=== PATIENT | female | born 1985 | race Two or more races ===

== ENCOUNTER 2024-10-15 13:43 | Inpatient (IN) | payer OTHER ==
[~2024-10-15] VITALS: Ht 162.6 cm; Wt 91.5 kg
[2024-10-15 15:34] LABS: PLATELET COUNT (AUTO) 361 K/uL (150-450); RED BLOOD CELL COUNT(AUTO) 4.35 MIL/uL (4.00-5.20); RED CELL DISTRIBUTION WIDTH 14.0 % (11.5-14.5); WHITE BLOOD COUNT (AUTO) 6.3 K/uL (4.5-11.0)
[2024-10-15 15:38] LABS: CALCIUM, TOTAL 7.8 mg/dL (8.8-10.5); CREATININE 0.56 mg/dL (0.60-1.30); GLOMERULAR FILTR. RATE CALC > 60 mL/min (>60); GLUCOSE,RANDOM 97 mg/dL (70-110); SODIUM SERUM 137 mmol/L (136-145); UREA NITROGEN, BLOOD 8 mg/dL (7-18)
[2024-10-15 15:42] LABS: ASPARTATE AMINOTRANSFERASE 18 U/L (15-37); CREATINE KINASE, TOTAL ONLY 118 U/L (26-192); TOTAL PROTEIN, SERUM 7.4 g/dL (6.4-8.2)
[2024-10-15 15:43] LABS: ALCOHOL, BLOOD (SERUM) < 3 mg/dL (0-10)
[2024-10-15 15:55] LABS: TROPONIN I-HIGH SENSITIVITY 5 ng/L (<51)
[2024-10-15] MEDS ORDERED: MAGNESIUM HYDROXIDE SUSPENSION 30 ML UDCUP PO PRN (16:15)
[2024-10-15] MEDS ORDERED: POTASSIUM CHL 10 MEQ/WATER 50 ML IV PRN (16:15)
[2024-10-15] MEDS ORDERED: MAGNESIUM OXIDE 400 MG TABLET PO PRN (16:15)
[2024-10-15] MEDS ORDERED: INSULIN LISPRO 100 UNITS/ML SQ PRN (16:15)
[2024-10-15] MEDS ORDERED: DEXTROSE 50%-WATER 25 GM/50 ML SYRINGE IVP PRN (16:15)
[2024-10-15] MEDS ORDERED: MAGNESIUM SULFATE 4 GM/WATER 100 ML IV PRN (16:15)
[2024-10-15 18:59] LABS: APPEARANCE,URINE HAZY (CLEAR); GLUCOSE, URINE (UA) NEGATIVE (NEGATIVE); LEUKOCYTE ESTERASE ,URINE LARGE (NEGATIVE); OCCULT BLOOD,URINE NEGATIVE (NEGATIVE); SPECIFIC GRAVITIY, URINE 1.015 (1.003-1.030)
[2024-10-15 19:02] LABS: PH,URINE DRUG SCREEN 6.0 (5.0-8.0)
[2024-10-15 19:05] LABS: ALCOHOL, URINE DRUG SCREEN NEGATIVE (NEGATIVE); AMPHET/METH SCREEN,URINE POSITIVE (NEGATIVE); BARBITURATE SCREEN, URINE NEGATIVE (NEGATIVE); CANNABINOID SCREEN,URINE NEGATIVE (NEGATIVE); COCAINE SCREEN,URINE NEGATIVE (NEGATIVE); METHADONE SCREEN, URINE NEGATIVE (NEGATIVE)
[2024-10-15 19:12] LABS: NITRATE,URINE POSITIVE (NEGATIVE); SQUAMOUS EPITHELIAL CELL,UR Few /LPF (None Seen)
[2024-10-15] MEDS: ACETAMINOPHEN 325 MG TABLET PO PRN (22:46)
[2024-10-15] MEDS ORDERED: SODIUM CHLORIDE 0.9% 500 ML IV ONE (22:48)
[2024-10-15] MEDS: CefTRIAXone 1 GM/DEXTROSE 50 ML IV ONE (23:23)
[2024-10-15] MEDS: HEPARIN SODIUM,PORCINE 5,000 UNITS/ML VIAL SQ SCH (23:24)
[2024-10-16] VITALS: BP 131/82; PULSE 87; RESP 18; TEMP 97.3; O2SAT 99
[2024-10-16 04:00] VITALS: BP 110/66; PULSE 63; RESP 18; TEMP 98.6; O2SAT 99
[2024-10-16] MEDS: MAGNESIUM SULFATE 2 GM/WATER 50 ML IV PRN (04:39)
[2024-10-16 07:14] LABS: PLATELET COUNT (AUTO) 319 K/uL (150-450); RED BLOOD CELL COUNT(AUTO) 4.14 MIL/uL (4.00-5.20); RED CELL DISTRIBUTION WIDTH 14.3 % (11.5-14.5); WHITE BLOOD COUNT (AUTO) 5.2 K/uL (4.5-11.0)
[2024-10-16 07:23] LABS: CALCIUM, TOTAL 7.7 mg/dL (8.8-10.5); CREATININE 0.57 mg/dL (0.60-1.30); GLOMERULAR FILTR. RATE CALC > 60 mL/min (>60); GLUCOSE,RANDOM 103 mg/dL (70-110); SODIUM SERUM 138 mmol/L (136-145); UREA NITROGEN, BLOOD 9 mg/dL (7-18)
[2024-10-16] MEDS: MULTIVITAMINS WITH MINERALS, THERAPEUTIC TABLET PO SCH (08:25)
[2024-10-16] MEDS: FAMOTIDINE 20 MG TABLET PO SCH (08:25)
[2024-10-16] MEDS: POTASSIUM CHLORIDE 20 MEQ ER TABLET PO PRN (08:25)
[2024-10-16] MEDS ORDERED: POTASSIUM CHLORIDE 20 MEQ ER TABLET PO PRN (10:30)
[2024-10-16] MEDS ORDERED: POTASSIUM CHL 10 MEQ/WATER 50 ML IV PRN (10:30)
[2024-10-16 11:51] LABS: GLUCOMETER DEV NAME(LOC) 5S.2D; GLUCOSE,POINT OF CARE 106 MG/DL (70-110)
[2024-10-16 14:15] LABS: GLUCOMETER DEV NAME(LOC) 5S.2D; GLUCOSE,POINT OF CARE 118 MG/DL (70-110)
[2024-10-16 16:55] VITALS: BP 127/82; PULSE 77; RESP 19; TEMP 98.1; O2SAT 98
[2024-10-16 18:10] LABS: GLUCOMETER DEV NAME(LOC) 5N.1D; GLUCOSE,POINT OF CARE 97 MG/DL (70-110)
[2024-10-16 20:00] VITALS: BP 112/74; PULSE 74; RESP 18; TEMP 98.6; O2SAT 98
[2024-10-16 21:30] LABS: GLUCOMETER DEV NAME(LOC) 5N.1D; GLUCOSE,POINT OF CARE 119 MG/DL (70-110)
[2024-10-17] VITALS: BP 112/65; PULSE 83; RESP 16; TEMP 98.1; O2SAT 98
[2024-10-17 04:00] VITALS: BP 133/83; PULSE 74; RESP 18; TEMP 97.5; O2SAT 99
[2024-10-17 06:14] LABS: PLATELET COUNT (AUTO) 334 K/uL (150-450); RED BLOOD CELL COUNT(AUTO) 4.23 MIL/uL (4.00-5.20); RED CELL DISTRIBUTION WIDTH 14.3 % (11.5-14.5); WHITE BLOOD COUNT (AUTO) 5.6 K/uL (4.5-11.0)
[2024-10-17 06:22] LABS: CALCIUM, TOTAL 8.0 mg/dL (8.8-10.5); CREATININE 0.49 mg/dL (0.60-1.30); GLOMERULAR FILTR. RATE CALC > 60 mL/min (>60); GLUCOSE,RANDOM 121 mg/dL (70-110); SODIUM SERUM 137 mmol/L (136-145); UREA NITROGEN, BLOOD 8 mg/dL (7-18)
[2024-10-17 08:31] VITALS: BP 115/70; PULSE 70; RESP 16; TEMP 97.3; O2SAT 97
[2024-10-17] MEDS: CIPROFLOXACIN HCL 250 MG TABLET PO SCH (11:12)
[2024-10-17 11:21] LABS: GLUCOMETER DEV NAME(LOC) 5S.2D; GLUCOSE,POINT OF CARE 111 MG/DL (70-110)
[2024-10-17 11:21] LABS: GLUCOMETER DEV NAME(LOC) 5N.1D; GLUCOSE,POINT OF CARE 106 MG/DL (70-110)
[2024-10-17 12:25] VITALS: BP 125/78; PULSE 70; RESP 17; TEMP 98.2; O2SAT 98
== END 2024-10-17 13:45 | DRG 689 ==
LOC: EMS 13:43 → EDH 16:11 → 5N 22:18
PROVIDERS: ADMIT Internal Medicine; ATTEND Internal Medicine
DX: N39.0 Urinary tract infection, site not specified (principal); G92.9 Unspecified toxic encephalopathy; F10.139 Alcohol abuse with withdrawal, unspecified; E11.65 Type 2 diabetes mellitus with hyperglycemia; R60.0 Localized edema; E66.01 Morbid (severe) obesity due to excess calories; F15.10 Other stimulant abuse, uncomplicated; F11.10 Opioid abuse, uncomplicated; Y90.9 Presence of alcohol in blood, level not specified
CPT/HCPCS: 71045; 80048; 80076; 80307; 81001; 82040; 82140; 82550; 82962; 83735; 83880; 84132; 84484; 84703; 85025; 85610; 85730; 87086; 93005; 93306; 93970; 99285; G0480; J0696; J1644; J3475; J7040; 36415-L1; 36415-TC

== ENCOUNTER 2024-12-11 14:16 | Emergency (ER) | payer MEDICAID, OTHER ==
[~2024-12-11] VITALS: Ht 162.6 cm; Wt 91.0 kg
[2024-12-11 14:23] VITALS: BP 133/99; PULSE 98; RESP 16; TEMP 97.9; O2SAT 98
[2024-12-11] MEDS ORDERED: IBUP-1554 PO (15:31)
[2024-12-11] MEDS ORDERED: DOXY-354 PO (15:31)
[2024-12-11] MEDS ORDERED: CEPH-558 PO (15:31)
[2024-12-11] MEDS ORDERED: BACI28.410 TP (15:33)
== END 2024-12-11 15:46 | disposition home or self-care (01) ==
LOC: EMS 14:16
DX: L02.11 Cutaneous abscess of neck (principal); J45.909 Unspecified asthma, uncomplicated; Z90.49 Acquired absence of other specified parts of digestive tract; Z79.899 Other long term (current) drug therapy
CPT/HCPCS: 10060; 99283